=== PATIENT | male | born 1970 | race Caucasian/White ===

== ENCOUNTER 2018-10-16 00:36 | Emergency (ER) | payer SELFPAY ==
[~2018-10-16] VITALS: Ht 170.2 cm; Wt 77.1 kg
--- NOTE | 2018-10-16 00:40 | NUR ---
PT [facility]. TAKEN TO BED 3
--- NOTE | 2018-10-16 00:42 | NUR ---
Dr. Martines examining patient.
[2018-10-16 00:44] VITALS: BP 167/96
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
[2018-10-16] MEDS ORDERED: NACL 0.9% 1,000 ML IV SCH (00:46)
[2018-10-16] MEDS ORDERED: KETOROLAC 15 MG/ML VIAL IVP ONE (00:50)
[2018-10-16 01:05] LABS: BASOPHILS % (AUTO) 0.4 % (0.0-2.0); EOSINOPHILS % (AUTO) 0.3 % (0.0-4.0); HEMATOCRIT 41.4 % (36-52); HEMOGLOBIN 14.2 g/dL (12.0-18.0); LYMPHOCYTES # (AUTO) 0.7 K/uL (2.0-11.5); LYMPHOCYTES % (AUTO) 9.3 % (20.5-51.1); MEAN CORPUSCULAR HEMOGLOBIN 33 pg (27-31); MEAN CORPUSCULAR HGB CONC 34 g/dL (33-37); MEAN CORPUSCULAR VOLUME 95.4 fL (80-94); MONOCYTES # (AUTO) 0.4 K/uL (0.8-1.0); MONOCYTES % (AUTO) 5.1 % (1.7-9.3); NEUTROPHILS # (AUTO) 6.6 K/uL (1.8-7.7); PLATELET COUNT (AUTO) 232 K/uL (140-450); RED BLOOD CELL COUNT(AUTO) 4.34 MIL/uL (4.20-6.10); RED CELL DISTRIBUTION WIDTH 12.8 % (11.6-13.7); WHITE BLOOD COUNT (AUTO) 7.8 K/uL (4.8-10.8)
[2018-10-16] MEDS ORDERED: KETOROLAC 60 MG/2 ML VIAL IM ONE (01:25)
[2018-10-16 01:29] LABS: CARBON DIOXIDE 26.5 mmol/L (21-32); POTASSIUM 3.5 mmol/L (3.5-5.1)
[2018-10-16 01:33] LABS: ALBUMIN 3.8 g/dL (3.4-5.0); NEUTROPHILS % (AUTO) 84.9 % (42.2-75.2); TOTAL BILIRUBIN 0.8 mg/dL (0.0-1.0)
[2018-10-16 01:55] LABS: APPEARANCE,URINE CLOUDY (CLEAR); BILIRUBIN,URINE 1+ (NEGATIVE); BLOOD, URINE 3+ (NEGATIVE); COLOR,URINE BROWN (YELLOW); LEUKOCYTE ESTERASE ,URINE NEGATIVE (NEGATIVE); NITRITE, URINE NEGATIVE (NEGATIVE); PH,URINE 7.5 (5.0-9.0); UGLUCOSE NEGATIVE (NEGATIVE)
[2018-10-16 02:17] LABS: RBC,URINE TOO NUMEROUS TO COUN /HPF (0-5)
[2018-10-16 02:45] VITALS: BP 120/70
--- NOTE | 2018-10-16 02:45 | NUR ---
Patient discharged with v/s stable. Written and verbal after care instructions given and explained. Patient alert, oriented and verbalized understanding of instructions. Ambulatory with steady gait. All questions addressed prior to discharge. ID band removed. Patient advised to follow up with PMD. Rx of NAPROSYN given. Patient educated on indication of medication including possible reaction and side effects. Opportunity to ask questions provided and answered. HOMELESS PACKET RESOURCES GIVEN. PT AGREEABLE. BUS PASS AND MEAL GIVEN TO PT.
== END 2018-10-16 02:45 | disposition home or self-care (01) ==
LOC: MED 00:36
DX: R10.32 Left lower quadrant pain (principal); R31.9 Hematuria, unspecified
CPT/HCPCS: 36415; 74176; 80053; 81001; 85025; 87086; 96374; 99284; J1885; J7030

== ENCOUNTER 2019-01-02 07:05 | Emergency (ER) | payer MEDICAID ==
[~2019-01-02] VITALS: Ht 170.2 cm; Wt 77.1 kg
[2019-01-02 07:13] VITALS: BP 136/103
--- NOTE | 2019-01-02 07:13 | NUR ---
PT BIBA C/O SUBSTANCE ABUSE. PT STATES HE SNORTED SMALL AMOUNT OF METH AROUND 01:00 THIS MORNING AND NOW HE "DOESN'T FEEL RIGHT." PT TACHYCARDIC WITH HEART RATE AT 108. DENIES CP OR SOB. PT AAOX4, COOPERATIVE, CALM, MUMBLES TO HIMSELF. 18G IV INSERTED IN LT AC BY EMS IN FIELD. VSS. ER TO SEE PT. MEDHX:DENIES RX:DENIES
--- NOTE | 2019-01-02 07:35 | NUR ---
ER AT BEDSIDE
[2019-01-02] MEDS ORDERED: LORazepam 2 MG/ML VIAL IVP ONE (07:40)
--- NOTE | 2019-01-02 08:52 | NUR ---
PT GIVEN WATER AND URINAL, AAOX4, VSS. PT DENIES PAIN AT THIS TIME.
[2019-01-02 09:20] VITALS: BP 130/94
== END 2019-01-02 09:20 | disposition home or self-care (01) ==
LOC: MED 07:05
DX: F15.10 Other stimulant abuse, uncomplicated (principal); R03.0 Elevated blood-pressure reading, without diagnosis of hypertension; F17.200 Nicotine dependence, unspecified, uncomplicated
CPT/HCPCS: 93005; 96374; 99283; J2060

== ENCOUNTER 2020-06-08 16:39 | Emergency (ER) | payer MEDICAID ==
[~2020-06-08] VITALS: Ht 167.6 cm; Wt 74.8 kg
[2020-06-08 16:45] VITALS: BP 160/102
--- NOTE | 2020-06-08 16:55 | NUR ---
PATIENT AMBULATED TO BED 9.
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
--- NOTE | 2020-06-08 17:30 | NUR ---
DR MULTANI AT BEDSIDE FOR FURTHER EVALUATION
--- NOTE | 2020-06-08 17:53 | NUR ---
PT TAKEN TO CT VIA W/C
--- NOTE | 2020-06-08 18:09 | NUR ---
PT BACK FROM CT. PT LAYING IN BED WITH EVEN AND UNLABORED RESPIRATIONS NOTED. BED IN LOWEST POSITION, BRAKES LOCKED, X1 SIDERAIL UP. WILL CONTINUE TO MONITOR
[2020-06-08] MEDS ORDERED: HYDROcodone/APAP 5/325 MG 1 TAB TAB PO ONE (18:55)
[2020-06-08 19:21] VITALS: BP 160/102
--- NOTE | 2020-06-08 19:21 | NUR ---
Patient discharged with v/s stable. Written and verbal after care instructions given and explained. Patient verbalized understanding. Ambulatory with steady gait. All questions addressed prior to discharge. Advised to follow up with PMD.
== END 2020-06-08 19:21 | disposition home or self-care (01) ==
LOC: MED 16:39
DX: S01.01XA Laceration without foreign body of scalp, initial encounter (principal); F12.10 Cannabis abuse, uncomplicated; F15.10 Other stimulant abuse, uncomplicated; V89.9XXA Person injured in unspecified vehicle accident, initial encounter; Y93.89 Activity, other specified; Y92.89 Other specified places as the place of occurrence of the external cause; Y99.8 Other external cause status
CPT/HCPCS: 70450; 90471; 90715; 99284

== ENCOUNTER 2021-06-10 18:08 | Emergency (ER) | payer SELFPAY ==
[~2021-06-10] VITALS: Ht 170.2 cm; Wt 72.6 kg
[2021-06-10 18:10] VITALS: BP 165/89
--- NOTE | 2021-06-10 19:24 | NUR ---
Place patient on Chair A.
--- NOTE | 2021-06-10 19:25 | NUR ---
Patient BIB by PD (from Triage reported). C/O substance abuse x today. Patient reported, found Meth on the floor and used it and "feel funny, not well". A/O,X4, denies pain, no SOB.
--- NOTE | 2021-06-10 19:43 | NUR ---
Dr. Garduno at Chair A to exam patient.
[2021-06-10 20:07] VITALS: BP 165/89
== END 2021-06-10 20:07 | disposition home or self-care (01) ==
LOC: MED 18:08
DX: F15.10 Other stimulant abuse, uncomplicated (principal); F12.90 Cannabis use, unspecified, uncomplicated; Z71.6 Tobacco abuse counseling
CPT/HCPCS: 99283